=== PATIENT | female | born 1995 | race Caucasian/White ===

== ENCOUNTER 2017-12-22 00:15 | Emergency (ER) | payer SELFPAY ==
[~2017-12-22] VITALS: Ht 152.4 cm; Wt 106.6 kg
[2017-12-22 00:25] VITALS: BP 142/100
--- NOTE | 2017-12-22 00:31 | NUR ---
PT TAKEN TO BED 3
--- NOTE | 2017-12-22 00:31 | NUR ---
PATIENT PRESENTS TO ED WITH C/O JO/ABDOMINAL PAIN . PT STATES + N/V/D; SKIN IS PINK/WARM/DRY; AAOX4 WITH EVEN AND STEADY GAIT; LUNGS CLEAR BL; HR EVEN AND REGULAR; PT DENIES ANY FEVER, CP, SOB, OR COUGH AT THIS TIME; VSS; PATIENT POSITIONED FOR COMFORT; HOB ELEVATED; BEDRAILS UP X2; BED DOWN. ER MD MADE AWARE OF PT STATUS.
[2017-12-22] MEDS ORDERED: PROCHLORPERAZINE 10 MG/2 ML VIAL IM ONE (00:40)
[2017-12-22 00:44] LABS: APPEARANCE,URINE CLEAR (CLEAR); BILIRUBIN,URINE NEGATIVE (NEGATIVE); BLOOD, URINE NEGATIVE (NEGATIVE); COLOR,URINE YELLOW (YELLOW); LEUKOCYTE ESTERASE ,URINE NEGATIVE (NEGATIVE); NITRITE, URINE NEGATIVE (NEGATIVE); UGLUCOSE NEGATIVE (NEGATIVE)
--- NOTE | 2017-12-22 01:12 | NUR ---
PT RETURN FROM XRAY
[2017-12-22] MEDS ORDERED: diphenhydrAMINE 50 MG/ML VIAL IM ONE (01:35)
--- NOTE | 2017-12-22 02:30 | NUR ---
Patient discharged with v/s stable. Written and verbal after care instructions given and explained. Patient alert, oriented and verbalized understanding of instructions. Ambulatory with steady gait. All questions addressed prior to discharge. ID band removed. Patient advised to follow up with PMD. Rx of Zofran 4mg and Tramadol 50mg given. Patient educated on indication of medication including possible reaction and side effects. Opportunity to ask questions provided and answered.
[2017-12-22 02:31] VITALS: BP 132/85
== END 2017-12-22 02:30 | disposition home or self-care (01) ==
LOC: MED 00:15
DX: R51 Headache (principal); K59.00 Constipation, unspecified; R42 Dizziness and giddiness
CPT/HCPCS: 74022; 81003; 81025; 96372; 99285; J0780; J1200; 81002